=== PATIENT | female | born 1960 | race Caucasian/White ===

== ENCOUNTER 2019-05-31 13:33 | Emergency (ER) | payer BC ==
--- NOTE | 2019-05-31 15:42 | UC ---
Respiratory Complaint HPI - HPI Summary HPI Summary: Last sunday fatigue and cough. [place] like plegm on windpipe. Sun. 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 Yesterday went running. Today temp of 99, muscle aches and headaches. Nothing MAKES IT BETTER/WORSE RECENT TRAVEL: YES TO [facility] RECENT COVID EXPOSURE: NO GI SYMPTOMS: NONE - History of Current Complaint Chief Complaint: UCRespiratory Stated Complaint: RESP COMPLAINT Time Seen by Provider: 05/31/19 14:55 Hx Obtained From: Patient Hx Last Menstrual Period: September 2010 Pain Intensity: 7 - Allergies/Home Medications Allergies/Adverse Reactions: Allergies Allergy/AdvReac Type Severity Reaction Status Date / Time No Known Allergies Allergy Verified 05/31/19 15:06 Home Medications: Home Medications Levothyroxine TAB* [Synthroid TAB*] 50 mcg PO 0800 02/13/12 [History Confirmed 05/31/19] Estradiol 0.025 MG PATCH (NF) 1 patch TRANSDERM DAILY 02/06/17 [History Confirmed 05/31/19] Acetaminophen 325 mg SUPP [Tylenol 325 mg Supp] 650 mg PO Q6HR 05/31/19 [ History Confirmed 05/31/19] Progesterone CAP (NF) [Prometrium (NF)] 100 mg PO DAILY 05/31/19 [History Confirmed 05/31/19] Thyroid,Pork [Simms Thyroid] 30 mg PO DAILY 05/31/19 [History Confirmed ] PMH/Surg Hx/FS Hx/Imm Hx Previously Healthy: Yes Endocrine History: Thyroid Disease - Surgical History Surgical History: Yes Surgery Procedure, Year, and Place: csection. acl repair RIGHT KNEE. RIGHT SHOULDER WITH HARDWARE. DENTAL IMPLANTS - Social History Alcohol Use: Occasionally Alcohol Amount: 3 days Substance Use Type: None Smoking Status (MU): Never Smoked Tobacco Review of Systems All Other Systems Reviewed And Are Negative: Yes Constitutional: Positive: Fatigue Skin: Negative: Rash ENT: Positive: Other - PHLEGM IN THROAT Respiratory: Positive: Cough. Negative: Shortness Of Breath Physical Exam Triage Information Reviewed: Yes Vital Signs Reviewed: Yes Respiratory: Positive: No respiratory distress Neurological: Positive: Other: - NORMAL SPEECH Respiratory Course/Dx - Course Course Of Treatment: Although her symptoms can be OTHER CAUSES covid MUST be considered given recent travel. To decrease transmission of Covid 19 patient was interviewed by myself using telemedicine. This does limit the physical exam. Rapid flu and strep neg. O2 GOOD, AFEBRILE. - Differential Dx/Diagnosis Provider Diagnosis: Upper respiratory disease Discharge ED - Sign-Out/Discharge Documenting (check all that apply): Patient Departure All imaging exams completed and their final reports reviewed: No Studies - Discharge Plan Condition: Good Disposition: HOME Patient Education Materials: Upper Respiratory Infection (ED) Forms: COVID-19 Tested & Isolation Referrals: Shannon Pacheco MD [Primary Care Provider] - Additional Instructions: Please follow the patient education for treatment of your viral infection. You do not have strep or flu. Please go to the emergency room if you have worsening respiratory symptoms. This is self-limiting and should resolve on its own. - Billing Disposition and Condition Condition: GOOD Disposition: Home
[2019-05-31 16:11] VITALS: BP 110/63
[2019-05-31 16:17] LABS: Influenza A Molecular Negative (Negative); Influenza B Molecular Negative (Negative)
== END 2019-05-31 16:25 | disposition home or self-care (01) ==
LOC: UCEAST 13:33
DX: J06.9 Acute upper respiratory infection, unspecified (principal); Z20.828 Contact with and (suspected) exposure to other viral communicable diseases; E07.9 Disorder of thyroid, unspecified; Z79.890 Hormone replacement therapy
CPT/HCPCS: 87651; 99211; G0463; U0002